=== PATIENT | female | born 1940 | race American Indian/Alaskan Native ===

== ENCOUNTER 2018-09-27 09:34 | Outpatient (CLI) | payer MEDICARE, BC | END 2018-09-27 09:35 | disposition home or self-care (01) | LOC: C.RADIC 09:34 | DX: M54.2 Cervicalgia (principal) ==

== ENCOUNTER 2018-10-13 14:59 | Outpatient (CLI) | payer MEDICARE, BC | END 2018-10-13 15:00 | disposition home or self-care (01) | LOC: C.MAMMO 14:59 | DX: Z12.31 Encounter for screening mammogram for malignant neoplasm of breast (principal) ==